=== PATIENT | male | born 1990 | race Hispanic/Latino ===

== ENCOUNTER 2017-09-29 15:58 | Emergency (ER) | payer SELFPAY ==
--- NOTE | 2017-09-29 17:32 | RAD ---
FIFTH FINGER RIGHT HAND THREE VIEWS: HISTORY: Injury with pain. FINDINGS: There is a dislocation of the PIP joint. The middle phalanx shows dorsal dislocation. No fracture i dentified. IMPRESSION: Dislocation, proximal interphalangeal joint, fifth finger, right hand. POS: [facility]
[2017-09-29] MEDS ORDERED: Lidocaine 1% PF 5 ML VIAL ONE (17:48)
--- NOTE | 2017-09-29 19:41 | RAD ---
RIGHT FIFTH FINGER THREE VIEWS: HISTORY: A 27-year-old male with a history of post reduction for proximal interphalangeal joint dislocation. COMPARISON: Earlier study from 09/29/2017. FINDINGS: The previously noted dislocation proximal interphalangeal joint of the fifth finger has been reduced. No evidence for a definite associated fracture. IMPRESSION: Reduction of the previously noted proximal interphalangeal joint dislocation of the fifth finger with out associated fracture. POS: [facility]
== END 2017-09-29 18:54 | disposition home or self-care (01) ==
LOC: ERS 15:58
DX: S63.286A Dislocation of proximal interphalangeal joint of right little finger, initial encounter (principal); W20.8XXA Other cause of strike by thrown, projected or falling object, initial encounter
CPT/HCPCS: 26770; J2001